=== PATIENT | male | born 2000 | race Caucasian/White ===

== ENCOUNTER 2025-07-18 10:56 | Emergency (ER) | payer BC ==
[~2025-07-18] VITALS: Ht 182.9 cm; Wt 93.0 kg
[2025-07-18 11:02] VITALS: BP 123/67; TEMP 98.2; O2SAT 97
== END 2025-07-18 11:24 | disposition home or self-care (01) ==
LOC: ER 11:00
DX: I11.9 Hypertensive heart disease without heart failure (principal); F14.10 Cocaine abuse, uncomplicated; Z02.2 Encounter for examination for admission to residential institution